=== PATIENT | male | born 1950 | race Caucasian/White ===

== ENCOUNTER 2017-11-19 23:18 | Emergency (ER) | payer OTHER ==
[~2017-11-19 23:18] MED LIST: ADVAIR 250-501 EACH INH; ALBUTEROL0.09 MG/A1 INH; ALBUTEROL2.5 MG/3 M INH/SOL; ALLOPURINOL300 M1 PO; ASPIRIN EC81 M1 PO; BACTRIM DS TAB1 EACH PO; CELEXA20 M1 PO; CITALOPRAM HBR40 MG PO; COREG6.25 M1 PO; CYCLOBENZAPRINE10 M1 PO; FLEXERIL10 MG PO; FLOMAX(MONOGRA0.4 MG PO; GLUCOPHAGE XR500 M1 PO; IBUPROFEN400 M1 PO; IBUPROFEN600 M1 PO; KEFLEX500 M1 PO; LEVAQUIN500 M1 PO; LIPITOR40 M1 PO; LISINOPRIL10 M1 PO; LISINOPRIL20 M1 PO; LYRICA100 M1 PO; MOBIC15 MG PO; NAPROSYN500 M1 PO; PERCOCET 325 MG1 TA2 PO; PERCOCET 5-3251 EACH PO; PREDNISONE20 M1 PO; SPIRIVA RESPIMAT4 G1 INH; TRICOR48 M1 PO; VIBRAMYCIN100 MG PO
--- NOTE | 2017-11-19 23:22 | ED MVC/FALL/TRAUMA COMPLAINT ---
History of Present Illness General Chief Complaint: Fall Stated Complaint: BIBA FALL Source: patient, EMS Exam Limitations: intoxication Vital Signs & Intake/Output Vital Signs & Intake/Output Vital Signs Date Time Temp Pulse Resp B/P B/P Pulse O2 O2 Flow FiO2 Mean Ox Delivery Rate 11/20 0954 78 118/70 11/20 0840 98.0 78 18 118/70 98 Room Air 11/20 0000 98 Room Air 11/19 2331 97.9 75 18 90/58 95 Room Air Allergies Coded Allergies: codeine (THROWS OFF EQUILIBRIUM 02/20/16) Reconcile Medications Albuterol Sulfate 2.5 MG/3 ML VIAL.NEB 1 Vial INH/BRIGHT Q4-6H PRN COPD ( Reported) Albuterol Sulfate (Albuterol Sulfate Hfa) 0.09 MG/Actuation KAREN 2 PUFF INH Q4- 6 PRN PRN SHORTNESS OF BREATH 90 MCG PER PUFF Allopurinol 300 MG TABLET 1 TAB PO DAILY GOUT (Reported) Aspirin (Ecotrin*) 81 MG TABLET.DR 1 TAB PO DAILY HEART/BLOOD (Reported) Atorvastatin Calcium (Lipitor) 40 MG TABLET 1 TAB PO DAILY CHOLESTEROL ( Reported) Carvedilol (Coreg) 6.25 MG TABLET 1 TAB PO BID HEART/BP (Reported) Cephalexin (Keflex) 500 MG CAPSULE 1 CAP PO 4 TIMES/DAY cellulitis Citalopram Hydrobromide (Citalopram HBr) 40 MG TABLET 1 TAB PO DAILY MENTAL HEALTH (Reported) Cyclobenzaprine HCl 10 MG TABLET 1 TAB PO 4 TIMES/DAY PRN MUSCLE SPASM Fenofibrate (Tricor) 48 MG TABLET 1 TAB PO DAILY CHOLESTEROL (Reported) Fluticasone/Salmeterol (Advair 250-50 Diskus) 1 EACH BLST.W.DEV 1 PUF INH Q12H RESPIRATORY (Reported) Ibuprofen 600 MG TABLET 1 TAB PO TID PRN pain with food Levofloxacin (Levaquin) 500 MG TABLET 1 TAB PO DAILY bronchitis Lisinopril 10 MG TABLET 1 TAB PO DAILY BP (Reported) Metformin HCl (Glucophage XR) 500 MG TAB.ER.24H 1 TAB PO DAILY DIABETES ( Reported) with food Naproxen (Naprosyn) 500 MG TABLET 1 TAB PO BID PRN pain Prednisone 20 MG TABLET 2 TAB PO QDAY bronchitis Pregabalin (Lyrica) 100 MG CAPSULE 1 CAP PO Q8H NERVE PAIN (Reported) Sulfamethoxazole/Trimethoprim (Bactrim Ds Tablet) 800 MG-160 MG TABLET 1 TAB PO BID cellulitis Tiotropium [place] (Spiriva Respimat) 4 GM MIST.INHAL 2 PUFF INH DAILY RESPIRATORY (Reported) Triage Nurses Notes Reviewed? yes Onset: Abrupt Duration: minute(s): Timing: recent history Severity: moderate Injuries/Fall Location: neck, back Method of Injury: fall Loss of Consciousness: unsure Modifying Factors: Improves With: rest. Worsens With: movement. Associated Symptoms: neck pain, back pain HPI: 67 yo gentleman h/o copd, cad presents after a fall. The patient shares that he got up from bed to the DVD player, "just a few steps away." He then fell and was unable to get up. He notes that he started lyrica 2-3 days ago. "And it didn't help that I had some beer tonight as well." He notes lower back pain, which is chronic, but feels worse. He notes also neck pain. He does not believe that he lost consciousness. (Angy CABRALES,Dain Lindquist) Past History Travel History Traveled to [place] past 21 day No Medical History Any Pertinent Medical History? 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 No (Angy CABRALES,Dain Lindquist) Review of Systems Review of Systems Constitutional: Reports: no symptoms. Eyes: Reports: no symptoms. Ears, Nose, Throat, Mouth: Reports: no symptoms. Respiratory: Reports: no symptoms. Cardiovascular: Reports: no symptoms. Gastrointestinal/Abdominal: Reports: no symptoms. Genitourinary: Reports: no symptoms. Musculoskeletal: Reports: no symptoms. Skin: Reports: no symptoms. Neurological/Psychological: Reports: no symptoms. All Other Systems: Reviewed and Negative (Angy CABRALES,Dain Lindquist) Physical Exam Physical Exam General Appearance: well developed/nourished, mild distress Head: atraumatic, normal appearance Eyes: Bilateral: normal appearance, PERRL, EOMI. Ears, Nose, Throat, Mouth: hearing grossly normal, moist mucous membrane Neck: paraspinous muscle tender, tender midline Respiratory: normal breath sounds, chest non-tender, no respiratory distress, quiet respiration, lungs clear Cardiovascular: regular rate/rhythm Gastrointestinal: normal bowel sounds, soft, non-tender, no organomegaly Back: normal inspection, normal range of motion Extremities: normal range of motion Neurologic/Psych: no motor/sensory deficits, awake, alert, oriented x 3 Skin: intact, normal color, warm/dry Core Measures ACS in differential dx? No CVA/TIA Diagnosis No Sepsis Present: No Sepsis Focused Exam Completed? No (Angy CABRALES,Dain Lindquist) Progress Differential Diagnosis: C/T/L spine injury, ICH Plan of Care: Orders Procedure Date/time Status Heart Healthy Diet 11/20 L Active PT Evaluate & Treat 11/20 07 Active CASE MANAGEMENT CONSULT 11/20 07 Active TROPONIN LEVEL 11/20 0300 Complete EKG 11/20 0300 Active TROPONIN LEVEL 11/19 2324 Complete LIPASE 11/19 232 Complete HEPATIC FUNCTION PANEL 11/19 232 Complete ETHANOL 11/19 232 Complete CBC WITHOUT DIFFERENTIAL 11/19 232 Complete BASIC METABOLIC PANEL 11/19 232 Complete AMYLASE 11/19 232 Complete EKG 11/19 2324 Active Current Medications Sig/Jyoti Start time Last Medication Dose Stop Time Status Admin Allopurinol 300 MG DAILY 11/20 899 UNVr 11/20 (Zyloprim) 0954 Aspirin Buffered 81 MG DAILY 11/20 899 UNVr 11/20 (Ecotrin) 0954 Atorvastatin Calcium 40 MG DAILY 11/20 899 UNVr 11/20 (Lipitor) 0954 Carvedilol 6.25 MG BID 11/20 899 UNVr 11/20 (Coreg) 0954 Citalopram 40 MG DAILY 11/20 899 UNVr 11/20 Hydrobromide 0954 (Celexa) Fenofibrate 48 MG DAILY 11/20 899 UNVr 11/20 (Tricor) 0954 Laboratory Tests 11/20/17 0258: Troponin I < 0.01 11/20/17 0006: Anion Gap 10, Estimated GFR > 60, BUN/Creatinine Ratio 15.0, Glucose 94, Calcium 9.0, Total Bilirubin 0.3, Direct Bilirubin 0.2, AST 19, ALT 18 L, Alkaline Phosphatase 64, Troponin I < 0.01, Total Protein 5.7 L, Albumin 3.5, Amylase 47 , Lipase 65, CBC w Diff NO MAN DIFF REQ, RBC 4.73, MCV 88.5, MCH 30.3, MCHC 34.2 , RDW 14.5, MPV 8.0, Gran % 58.4, Lymphocytes % 27.1, Monocytes % 9.0, Eosinophils % 4.0, Basophils % 1.5, Absolute Granulocytes 6.1, Absolute Lymphocytes 2.8, Absolute Monocytes 0.9 H, Absolute Eosinophils 0.4, Absolute Basophils 0.2, Serum Alcohol 98.0 Diagnostic Imaging: Viewed by Me: CT Scan. Discussed w/RAD: CT Scan. Radiology Impression: PATIENT: MARCELLE TIM PRESENT AGE: 67 PATIENT ACCOUNT NO: [id number] : 48 LOCATION: [facility] ORDERING PHYSICIAN: Dain Travis MD SERVICE DATE: 11/19/17 EXAM TYPE: CAT - CT CERV SPINE WO IV CONTRAST; CT HEAD WO IV CONTRAST EXAMINATIONS: CT HEAD WITHOUT CONTRAST AND CT CERVICAL SPINE WITHOUT CONTRAST CLINICAL INFORMATION: Trauma to head. Fall. COMPARISON: None. TECHNIQUE: Contiguous helical images of the brain were obtained without IV contrast. Contiguous helical images of the cervical spine were obtained without IV contrast. Multiplanar reconstructions were performed. DLP: 1074 mGy-cm. FINDINGS: There are no pathologic extra-axial fluid collections. The lateral, third, fourth ventricles are mildly prominent, though age-appropriate and concordant with the appearance of the sulci. There is no evidence for acute intraparenchymal hemorrhage or infarct. There is mild periventricular low-attenuation indicative of small vessel disease. There is neither mass nor mass effect. There is no shift of midline structures. The paranasal sinuses and mastoid air cells are clear. There are no osseous lesions. The cervical vertebra are in normal alignment. There is multilevel disc height loss within the cervical spine with anterior osteophyte formation. Disc heights and vertebral heights are otherwise well-preserved. There are no fractures. There is no prevertebral soft tissue swelling. There is no cervical lymphadenopathy. The visualized lung apices are clear. IMPRESSION: No evidence for acute intracranial injury. Age-appropriate appearance of the brain. No evidence for acute injury to the cervical spine. Age-appropriate mild to moderate degenerative change within the cervical spine. DICTATED BY: Jesús Ferrer MD DATE/TIME DICTATED:11/20/1721 INSTALLMENT DEALER:DANIS DATE/TIME TRANSCRIBED:11/20/1721 CONFIDENTIAL, DO NOT COPY WITHOUT APPROPRIATE AUTHORIZATION. <Electronically signed in Other Vendor System> SIGNED BY: Jesús Ferrer MD 11/20/17 0030, PATIENT: MARCELLE TIM PRESENT AGE: 67 PATIENT ACCOUNT NO: [id number] : 48 LOCATION: [facility] ORDERING PHYSICIAN: Dain Travis MD SERVICE DATE: 11/19/17 EXAM TYPE: CAT - CT ABD & PELVIS W/O IV CONTRAS; CT CHEST WO IV CONTRAST EXAMINATION: CT CHEST, ABDOMEN AND PELVIS WITHOUT CONTRAST CLINICAL INFORMATION: Pain after fall. Trauma. Intoxicated. COMPARISON: December 16, 2015. TECHNIQUE: Contiguous axial thin section helical images of the chest, abdomen and pelvis were performed without oral or IV contrast. The data set was reformatted in the coronal and sagittal planes and reviewed on an independent workstation. DLP: 694 mGy-cm. FINDINGS: The heart is of normal size. There is no pericardial effusion. There is neither mediastinal, hilar nor axillary lymphadenopathy. There are no chest wall masses. Review of lung windows demonstrates that there are neither pleural effusions nor pneumothoraces. Within the periphery of the right lung, there is nonspecific subpleural septal thickening and "tree-in-bud" opacification. There are no pulmonary parenchymal nodules. The liver is of normal size and attenuation without focal lesions nor intrahepatic biliary ductal dilation. A normal gallbladder is identified. There is no wall thickening or discernible pericholecystic fluid. The spleen, pancreas, adrenal glands are unremarkable. Both kidneys are of normal size and attenuation without hydronephrosis or nephrolithiasis. Following the administration of IV contrast, prompt symmetric nephrograms are displayed. Again identified is an abdominal aortic aneurysm with intact aortobifemoral stent. There is no abdominal free fluid. There is neither mesenteric nor retroperitoneal lymphadenopathy. There is sigmoid diverticulosis without evidence of diverticulitis. Otherwise, unremarkable opacified loops of small and large bowel are identified. A normal appendix is identified. There is no pelvic free fluid. The urinary bladder is unremarkable. There is neither pelvic nor inguinal lymphadenopathy. Bone windows : Neither sclerotic nor lytic bone lesions are identified. There is an intervertebral disc spacer at L5/S1. There is stable mild anterior displacement of L5 in relation to S1. IMPRESSION: No evidence for acute traumatic injury to the thorax, abdomen or pelvis. Sigmoid diverticulosis without evidence of diverticulitis. Nonspecific mild interlobular septal thickening and "tree-in-bud "opacification within the periphery of the right lung. DICTATED BY: Jesús Ferrer MD DATE/TIME DICTATED:11/20/1725 INSTALLMENT DEALER:DANIS DATE/TIME TRANSCRIBED:11/20/1725 CONFIDENTIAL, DO NOT COPY WITHOUT APPROPRIATE AUTHORIZATION. <Electronically signed in Other Vendor System> SIGNED BY: Jesús Ferrer MD 11/20/17 003 Initial ED EKG: sinus, poor r wave progression. no acute changes Repeat EKG: unchanged (Angy CABRALES,Dain Lindquist) Comments: Patient feels that he is ready to go home. Able to ambulate without assistance. Return precautions given. (Vidal Moya MD) Departure Departure Condition: Stable Clinical Impression Primary Impression: Fall Secondary Impressions: Back pain, Contusion, Neck pain Referrals: Melia Hernandez APRN (PCP/Family) Departure Forms: Customer Survey General Discharge Information Comments pt to be signed out to dr. moya 11/20/17, 7am. (Dain Travis MD) Departure Disposition: HOME OR SELF CARE (Vidal Moya MD)
[2017-11-20 00:30] LABS: ABSOLUTE BASOPHIL COUNT 0.2 /CUMM (0.0-0.2); ABSOLUTE EOSINOPHIL COUNT 0.4 /CUMM (0.0-0.7); ABSOLUTE GRANULOCYTE CT 6.1 /CUMM (1.4-6.5); ABSOLUTE LYMPH COUNT 2.8 /CUMM (1.2-3.4); ABSOLUTE MONOCYTE COUNT 0.9 /CUMM (0.10-0.60); BASOPHIL % 1.5 % (0.0-2.0); GRANULOCYTE % 58.4 % (42.2-75.2); HEMATOCRIT 41.8 % (42-52); MEAN CORPUSCULAR HGB 30.3 PG (27.0-31.0); MEAN CORPUSCULAR HGB CONC 34.2 G/DL (33.0-37.0); MEAN CORPUSCULAR VOLUME 88.5 FL (80.0-94.0); PLATELET COUNT 177 /CUMM (130-400); RBC DISTRIBUTION WIDTH 14.5 % (11.5-14.5); RED BLOOD CELL CT 4.73 /CUMM (4.70-6.10); WHITE BLOOD CELL COUNT 10.5 /CUMM (4.8-10.8)
--- NOTE | 2017-11-20 00:30 | CT SCAN REPORT ---
EXAMINATIONS: CT HEAD WITHOUT CONTRAST AND CT CERVICAL SPINE WITHOUT CONTRAST CLINICAL INFORMATION: Trauma to head. Fall. COMPARISON: None. TECHNIQUE: Contiguous helical images of the brain were obtained without IV contrast. Contiguous helical images of the cervical spine were obtained without IV contrast. Multiplanar reconstructions were performed. DLP: 1074 mGy-cm. FINDINGS: There are no pathologic extra-axial fluid collections. The lateral, third, fourth ventricles are mildly prominent, though age-appropriate and concordant with the appearance of the sulci. There is no evidence for acute intraparenchymal hemorrhage or infarct. There is mild periventricular low-attenuation indicative of small vessel disease. There is neither mass nor mass effect. There is no shift of midline structures. The paranasal sinuses and mastoid air cells are clear. There are no osseous lesions. The cervical vertebra are in normal alignment. There is multilevel disc height loss within the cervical spine with anterior osteophyte formation. Disc heights and vertebral heights are otherwise well-preserved. There are no fractures. There is no prevertebral soft tissue swelling. There is no cervical lymphadenopathy. The visualized lung apices are clear. IMPRESSION: No evidence for acute intracranial injury. Age-appropriate appearance of the brain. No evidence for acute injury to the cervical spine. Age-appropriate mild to moderate degenerative change within the cervical spine.
--- NOTE | 2017-11-20 00:37 | CT SCAN REPORT ---
EXAMINATION: CT CHEST, ABDOMEN AND PELVIS WITHOUT CONTRAST CLINICAL INFORMATION: Pain after fall. Trauma. Intoxicated. COMPARISON: December 16, 2015. TECHNIQUE: Contiguous axial thin section helical images of the chest, abdomen and pelvis were performed without oral or IV contrast. The data set was reformatted in the coronal and sagittal planes and reviewed on an independent workstation. DLP: 694 mGy-cm. FINDINGS: The heart is of normal size. There is no pericardial effusion. There is neither mediastinal, hilar nor axillary lymphadenopathy. There are no chest wall masses. Review of lung windows demonstrates that there are neither pleural effusions nor pneumothoraces. Within the periphery of the right lung, there is nonspecific subpleural septal thickening and "tree-in-bud" opacification. There are no pulmonary parenchymal nodules. The liver is of normal size and attenuation without focal lesions nor intrahepatic biliary ductal dilation. A normal gallbladder is identified. There is no wall thickening or discernible pericholecystic fluid. The spleen, pancreas, adrenal glands are unremarkable. Both kidneys are of normal size and attenuation without hydronephrosis or nephrolithiasis. Following the administration of IV contrast, prompt symmetric nephrograms are displayed. Again identified is an abdominal aortic aneurysm with intact aortobifemoral stent. There is no abdominal free fluid. There is neither mesenteric nor retroperitoneal lymphadenopathy. There is sigmoid diverticulosis without evidence of diverticulitis. Otherwise, unremarkable opacified loops of small and large bowel are identified. A normal appendix is identified. There is no pelvic free fluid. The urinary bladder is unremarkable. There is neither pelvic nor inguinal lymphadenopathy. Bone windows: Neither sclerotic nor lytic bone lesions are identified. There is an intervertebral disc spacer at L5/S1. There is stable mild anterior displacement of L5 in relation to S1. IMPRESSION: No evidence for acute traumatic injury to the thorax, abdomen or pelvis. Sigmoid diverticulosis without evidence of diverticulitis. Nonspecific mild interlobular septal thickening and "tree-in-bud "opacification within the periphery of the right lung.
[2017-11-20 09:54] VITALS: BP 118/70
== END 2017-11-20 10:34 ==
LOC: ERH 23:18
PROVIDERS: Pediatrics
DX: M54.5 Low back pain (principal); M54.2 Cervicalgia; I25.10 Atherosclerotic heart disease of native coronary artery without angina pectoris; I10 Essential (primary) hypertension; E78.5 Hyperlipidemia, unspecified; J44.9 Chronic obstructive pulmonary disease, unspecified; E11.9 Type 2 diabetes mellitus without complications
CPT/HCPCS: 74176; 93005; 93010; G0480